=== PATIENT | male | born 1970 ===

== ENCOUNTER 2024-05-05 08:49 | Emergency (ER) | payer SELFPAY ==
[~2024-05-05] VITALS: Ht 177.8 cm; Wt 99.8 kg
[2024-05-05] MEDS ORDERED: CYCL10 PO (09:51)
== END 2024-05-05 10:02 | disposition home or self-care (01) ==
LOC: ER 08:49
DX: S16.1XXA Strain of muscle, fascia and tendon at neck level, initial encounter (principal); I10 Essential (primary) hypertension; X58.XXXA Exposure to other specified factors, initial encounter
CPT/HCPCS: 99283